=== PATIENT | male | born 1970 | race Caucasian/White ===

== ENCOUNTER 2021-04-01 08:58 | Emergency (ER) | payer OTHER ==
[~2021-04-01 08:58] MED LIST: AMBIEN10 MG PO; NORCO 7.5-3251 EACH PO; PERCOCET 7.5-31 EACH PO; ZYLOPRIM 300 M300 MG PO
[2021-04-01] MEDS ORDERED: ENDOCET 5-3251 EACH PO (11:27)
== END 2021-04-01 11:42 | disposition home or self-care (01) ==
LOC: ER1 08:58
DX: S72.424A Nondisplaced fracture of lateral condyle of right femur, initial encounter for closed fracture (principal); F17.210 Nicotine dependence, cigarettes, uncomplicated; Z79.899 Other long term (current) drug therapy; V80.010A Animal-rider injured by fall from or being thrown from horse in noncollision accident, initial encounter; Y92.009 Unspecified place in unspecified non-institutional (private) residence as the place of occurrence of the external cause
CPT/HCPCS: 20610; 71045; 73564; 73700; 96374; 99284; J2270